=== PATIENT | female | born 1970 | race Caucasian/White ===

== ENCOUNTER 2022-11-17 10:37 | Day surgery (SDC) | payer OTHER, SELFPAY ==
--- NOTE | 2022-11-17 10:56 | P.CONAN_ITS ---
HPI - Anesthesia Eval Consult details Narrative: 52 yo female patient for EGD, Colonoscopy [facility] Past Medical History Medical History ADHD Anxiety and depression Fatty liver GERD (gastroesophageal reflux disease) Gestational diabetes Family History Family history of problems with anesthesia: No Surgical History Surgical History (Updated 11/17/22 @ 11:59 by Belen Clemons MD) Previous section [place] teeth extracted History of Problems with Anesthesia: No (Spinal. No problems) Social History Social History Patient Tobacco Use Status: Current everyday Tobacco user Tobacco use type: Cigarette Use of substances other than those prescribed or required for medical reasons: No Are you DNR?: No Advance Directives: No Advance Directives Information Provided: Yes Meds Allergies Allergy/AdvReac Type Severity Reaction Status Date / Time azithromycin Allergy Severe Nausea and Verified 11/17/22 11:06 Vomiting vancomycin Allergy Severe Itching Verified 11/17/22 11:05 Active Medications: Current Medications Lactated Ringer's (Lr) 1,000 mls @ 50 mls/hr IVCONT .Q20H [facility] Home Medications Medication Instructions Recorded Confirmed Last Taken Type clonazepam 2 mg tablet 0.5 - 1 tab PO DAILY PRN Anxiety 11/16/22 11/16/22 Unknown History fluoxetine 20 mg capsule 1 cap PO DAILY 11/16/22 11/16/22 Unknown History Exam Exam Date and Time: November 17, 2022 1056 Height,Weight and Vital Signs: Height 5 ft 4 in Weight 76.657 kg Vital Signs Temp Pulse Resp BP Pulse Ox O2 Del Method 11/17/22 11:23 98.2 F 94 16 132/74 96 Room Air Airway TM Dist: >3cm Neck ROM: Full Loose/Missing/Broken Teeth: No (Denies broken, loose, missing teeth) Heart: RRR Lungs: CTAB Assessment and Plan Assessment Anesthesia Assessment: Anesthesia Plan Discussed and Chart Reviewed Final Anesthetic Review Family History of Problems with Anesthesia: No History of Problems with Anesthesia: No (Spinal. No problems) NPO: Yes ASA Class: II Final Preanesthetic Review: No Changes in Pt Med Stat, Meds/Allgs Chart Reviewed, Consent Obtained/Reviewed and Anes Risks/Benef Reviewed Patient Risk: Low Procedure Risk: Low Assessment/Block/Sedation in SS: Assess/Block/Sedation-SS Anesthetic Plan Anesthetic Plan: MAC: Disposition: Standard PACU
[2022-11-17 11:09] VITALS: BMI 29.0
[2022-11-17 11:23] VITALS: BP 132/74; PULSE 94; RESP 16; TEMP 36.8; O2SAT 96
[2022-11-17] MEDS: Lactated Ringers 1,000 ML 50 ML IVCONT (11:34)
--- NOTE | 2022-11-17 11:53 | MHC.SHP ---
Pre-Procedural Eval Section A Date of Service: 11/17/22 The patient is an INPATIENT: No Changes since office visit: No Cold of Flu in the past 2 weeks, No New Medical Problems, No Changes in Medication and No Patient answered all questions The History & Physical has been completed within 30 days and I have reviewed it.: Yes Section B Chief Complaint: reflux disease,screening Allergies: Allergies Allergy/AdvReac Type Severity Reaction Status Date / Time azithromycin Allergy Severe Nausea and Verified 11/17/22 11:06 Vomiting vancomycin Allergy Severe Itching Verified 11/17/22 11:05 Plan I have reviewed the history and physical and performed a pertinent physical examination on my patient. No changes have occurred unless specified. Time Spent With Patient Time: Total time managing care of this patient today ____ minutes.
--- NOTE | 2022-11-17 12:33 | PM.OP ---
Brief Operative Note Date of Service: 11/17/22 Pre-op diagnosis: gerd,screening Post-op diagnosis: same Procedure: egd colonoscopy Surgeon: Nicola Bernardo Anesthesia: MAC Was an [employer] used for this Procedure?: No Estimated blood loss (mL): 5 Pathology: other Condition: stable Disposition: PACU
[2022-11-17 12:38] VITALS: BP 103/65; PULSE 75; RESP 16; TEMP 36.4; O2SAT 98
[2022-11-17 12:53] VITALS: BP 116/74; PULSE 65; RESP 16; TEMP 36.4; O2SAT 96
--- NOTE | 2022-11-17 22:32 | OP_ITS ---
SURGEON: Nciola Bernardo MD INDICATIONS: 1. Gastroesophageal reflux disease. 2. Colon cancer screening. PREOPERATIVE DIAGNOSIS: POSTOPERATIVE DIAGNOSIS: PROCEDURE PERFORMED: ESTIMATED BLOOD LOSS: COMPLICATIONS: ANESTHESIA: ASSISTANTS: SPECIMENS: PROCEDURE: Upper endoscopy with biopsy, colonoscopy to the terminal ileum with biopsy. MEDICATIONS: Monitored anesthesia care. PROCEDURE DESCRIPTION: The procedure was performed on 11/17/2022. A history and physical performed. The risks and benefits of the procedure were explained to the patient. Informed consent was obtained. The patient was placed in the left lateral decubitus position. The Olympus video gastroscope was introduced into the esophagus, stomach, and duodenum. Examination was performed. The scope was removed. She was repositioned for colonoscopy. A digital rectal exam was performed and was found to be normal. The Olympus pediatric video colonoscope was introduced into the rectum and advanced to the cecum without difficulty. The cecum was identified by transillumination, palpation, and identification of ileocecal valve. Examination was performed. The scope was removed. She tolerated both procedures well, was returned to recovery area in stable condition. FINDINGS: Upper endoscopy: The esophagus was remarkable for slightly irregular EG junction. This was biopsied. There was no esophagitis. Stomach: Showed no evidence of masses, ulcers, or polyps. Antral biopsies were obtained to evaluate for H pylori. Duodenum: The bulb and 2nd portion were normal. Six biopsies were obtained from the 2nd portion because of the patient's family history of celiac disease. Colonoscopy: The terminal ileum was normal. The visualized colonic mucosa was normal. The quality of prep was good. There was mild sigmoid diverticulosis. Random sigmoid biopsies were obtained to rule out microscopic colitis. Retroflexed examination showed some small internal hemorrhoids and hypertrophic anal papillae. IMPRESSION: 1. Gastroesophageal reflux disease. 2. Normal colonoscopy. RECOMMENDATION: 1. Follow up the biopsy results. 2. Repeat colonoscopy is recommended in 10 years for average risk individuals. MD PHAN Dolan/JAVI / [id number]
== END 2022-11-17 13:19 | disposition home or self-care (01) ==
PROVIDERS: PCP Internal Medicine Geriatric Medicine; Visit Provider Internal Medicine Gastroenterology
PROC: (CPT 45380; principal; 2022-11-17 11:40)
DX: Z12.11 Encounter for screening for malignant neoplasm of colon (principal); K57.30 Diverticulosis of large intestine without perforation or abscess without bleeding; K64.8 Other hemorrhoids; K62.89 Other specified diseases of anus and rectum; K21.9 Gastro-esophageal reflux disease without esophagitis; K76.0 Fatty (change of) liver, not elsewhere classified; Z83.79 Family history of other diseases of the digestive system; R73.03 Prediabetes; F41.8 Other specified anxiety disorders; Z79.899 Other long term (current) drug therapy
CPT/HCPCS: 45380; 43239; 88305; 88342